=== PATIENT | male | born 1985 | race Caucasian/White ===

== ENCOUNTER → 2019-08-16 07:55 | Outpatient (CLI) | payer OTHER, SELFPAY ==
--- NOTE | ~2019-08-16 | US_ITS ---
US thyroid DATE: 08/16/2019 08:10 INDICATION: Thyroid nodule. Nontoxic goiter. TECHNIQUE: Real-time and color flow imaging of the thyroid gland COMPARISON: None FINDINGS: The right lobe of the thyroid gland measures 5.3 centimeters height x 1.4 centimeters AP x 1.6 centimeters transverse dimension. The left lobe measures 5.1 x 1.5 x 1.7 cm. The thyroid isthmus measures up to 5 mm anteroposterior dimension. No thyroid mass lesion is evident. Echotexture of the thyroid gland is relatively homogeneous and sym metric. IMPRESSION: No thyroid mass lesion detected Reviewed, dictated and finalized at [facility] Reviewed, dictated and finalized at [facility].
== END ==
PROVIDERS: PCP Family Medicine; Visit Provider Internal Medicine Endocrinology, Diabetes & Metabolism
DX: E04.9 Nontoxic goiter, unspecified (principal)
CPT/HCPCS: 76536

== ENCOUNTER 2019-11-07 08:40 | Emergency (ER) | payer OTHER, SELFPAY ==
--- NOTE | ~2019-11-07 | XR_ITS ---
EXAMINATION: XR shoulder RT min 2V DATE: 11/07/2019 09:48 INDICATION: Right shoulder pain. TECHNIQUE: 4 views of right shoulder were obtained. COMPARISON: None. FINDINGS: Bone alignment is normal. No fracture. Acromioclavicular joint is normal. There is mild gle nohumeral joint osteoarthritis. IMPRESSION: 1. Mild glenohumeral joint osteoarthritis. Reviewed, dictated and finalized at [facility].
[2019-11-07 08:53] VITALS: BP 162/105; PULSE 78; RESP 16; TEMP 36.3; O2SAT 98
[2019-11-07] MEDS: DIAZEPAM 5 MG TABLET PO (09:04)
--- NOTE | 2019-11-07 09:06 | ED.UPPEXIN ---
HPI - Extremity Injury (Upper) General Chief Complaint: Extremity Injury, Upper Stated Complaint: neck shoulder pain Time Seen by Provider: 11/07/19 08:43 History of Present Illness HPI narrative: Shoulder pain since yesterday morning. Located in the anterior shoulder with radiation into the trapezius and neck. Noticed first thing when he woke up. Mild improvement throughout the day, now more severe than before. Made worse by shoulder abduction and flexion. Mild improvement with folding hands behind the head. No trauam, fever, swelling, redness. Related Data Home Medications Medication Instructions Recorded Confirmed metoprolol succinate 25 mg 25 mg PO DAILY 08/25/19 tablet,extended release 24 hr metformin 500 mg PO BID 11/07/19 Allergies Allergy/AdvReac Type Severity Reaction Status Date / Time No Known Allergies Allergy Verified 11/07/19 08:57 Review of Systems Review of Systems: All systems reviewed & are unremarkable except as noted in HPI and below PMFSH Past Medical History Medical History Diabetes mellitus HTN (hypertension) Family History Family History Other Hypertension Social History Social History Smoking status: Never smoker Second hand tobacco smoke exposure: No Alcohol intake: current Gender identity (if verbalized by the patient): Male Exam Const: General: no acute distress and alert Nutritional Appearance: obese Orientation/consciousness: patient oriented x3 HENMT: Head: normal to inspection Resp: Effort & Inspection: normal respiratory effort Auscultation: clear to auscultation bilaterally Cardio: Rate: regular rate Rhythm: regular rhythm Skin: General skin exam: normal color Rashes: no rashes Wounds: no wounds Neuro: General: patient oriented x3, moves all extremities and CN's II-XI intact bilaterally Speech: normal speech Other: 5/5 strength. Pain limited ROM in right shoulder. Minimal pain with passive movement. Mild tenderness of biceps ligament. Extrem: General: normal to inspection Psych: Appearance: grossly normal and well kempt Mental Status: mental status grossly normal Affect: normal affect Attitude: cooperative Thought content: Yes Normal thought content present Course Vital Signs Vital signs: Vital Signs Temperature 36.3 C L 06/05/20 08:53 Pulse Rate 78 11/07/19 08:53 Respiratory Rate 16 11/07/19 08:53 Blood Pressure 162/105 H 11/07/19 08:53 Pulse Oximetry 98 11/07/19 08:53 Temperature 36.3 C L 11/07/19 08:53 Pulse Rate 72 11/07/19 10:25 Respiratory Rate 14 11/07/19 10:25 Blood Pressure 164/64 H 11/07/19 10:25 Pulse Oximetry 99 11/07/19 10:25 Discharge Plan Discharge Clinical Impression: Tendinopathy of right biceps tendon Patient Disposition: Home, Self-Care Condition: Stable Instructions: Tendinitis (ED) Prescriptions: New methylprednisolone [Medrol (Romeo)] 4 mg tablets,dose pack See Rx Instructions .ROUTE .COMPLEX Qty: 21 RF: 0 No Action metformin 500 mg tablet extended release 24 hr 500 mg PO BID RF: 0 metoprolol succinate 25 mg tablet extended release 24 hr 25 mg PO DAILY RF: 0 amlodipine 10 mg tablet 10 mg PO DAILY Qty: 90 RF: 3 Follow-up/Referrals: Katiana Stringer MD [Primary Care Provider] - Discharge Date/Time: 11/07/19 10:29
[2019-11-07 10:25] VITALS: BP 164/64; PULSE 72; RESP 14; O2SAT 99
== END 2019-11-07 10:29 | disposition home or self-care (01) ==
PROVIDERS: Emergency Provider Emergency Medicine; PCP Family Medicine
DX: M75.81 Other shoulder lesions, right shoulder (principal); E11.9 Type 2 diabetes mellitus without complications; I10 Essential (primary) hypertension; M19.011 Primary osteoarthritis, right shoulder; Z79.84 Long term (current) use of oral hypoglycemic drugs
CPT/HCPCS: 73030; 96372; 99283; A9270; J1100

== ENCOUNTER 2020-04-03 08:36 | Emergency (ER) | payer OTHER, SELFPAY ==
[2020-04-03 08:42] VITALS: BP 150/88; PULSE 92; RESP 18; TEMP 36.1; O2SAT 98
--- NOTE | 2020-04-03 09:07 | ED.GENADULT ---
HPI - General Adult General Chief complaint: Allergic Reaction Stated complaint: allergic reaction to paint Time Seen by Provider: 04/03/20 08:48 Source: patient History of Present Illness HPI narrative: Patient is a 35 y/o male complaining of erythematous rash on his upper face, forehead and ears since 3 days ago. He has no pain or itch. He took Benadryl, which did not help. He has no fever, chills, chest pain or SOB. 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 He states that he had full body suit and respirator covering his mouth and nose. However, the rest of his head was exposed. He is concerned that rash maybe due to allergic reaction to paint. Related Data Home Medications Medication Instructions Recorded Confirmed metformin 500 mg PO BID 11/07/19 Allergies Allergy/AdvReac Type Severity Reaction Status Date / Time No Known Allergies Allergy Verified 04/03/20 08:54 Review of Systems Constitutional: Constitutional: Denies chills, Denies fever(s), Denies headache(s) and Denies weakness Eyes: Eyes: Denies blurry vision ENT: Denies headache(s) and Denies neck pain Cardiovascular: Cardiovascular: Denies chest pain and Denies dyspnea Respiratory: Respiratory: Denies cough and Denies dyspnea Gastrointestinal: Gastrointestinal: Denies abdominal pain, Denies diarrhea, Denies nausea and Denies vomiting Genitourinary: Genitourinary: Denies hematuria and Denies dysuria Musculoskeletal: Musculoskeletal: Denies back pain and Denies neck pain Integumentary/Breasts: Skin/Breast: Reports as per HPI and Reports rash Neurologic: Denies headache(s) and Denies weakness [facility] Past Medical History Medical History (Updated 04/03/20 @ 11:22 by Carol Ann Ott MD) Diabetes mellitus HTN (hypertension) Family History Family History Other Hypertension Social History Social History Smoking status: Never smoker Second hand tobacco smoke exposure: No Alcohol intake: current Gender identity (if verbalized by the patient): Male Exam Const: General: no acute distress and well developed Orientation/consciousness: oriented to person, oriented to place, oriented to time and patient oriented x3 HENMT: Head: normocephalic Ears: external ears normal General nose exam: Normal external nose present Eyes: General: appearance normal, both eyes and all related structures Conjunctivae: conjunctivae normal Neck: Neck: normal visual inspection and full ROM Chest: Chest palpation & inspection: normal inspection of the chest and no tenderness Resp: Effort & Inspection: normal respiratory effort Auscultation: clear to auscultation bilaterally Cardio: Rate: regular rate Rhythm: regular rhythm GI: GI Palp: No abdominal tenderness and Yes Soft to palpation Skin: General skin exam: normal color and turgor normal Rashes: rashes noted (erythematous rash on upper face) Neuro: General: oriented to person, oriented to place, oriented to time and patient oriented x3 Cognition (Neuro): normal cognition Extrem: General: normal to inspection, full ROM and no pedal edema Psych: Appearance: grossly normal Mental Status: mental status grossly normal Affect: normal affect Course Vital Signs Vital signs: Vital Signs Temperature 36.1 C L 04/03/20 08:42 Pulse Rate 92 04/03/20 08:42 Respiratory Rate 18 04/03/20 08:42 Blood Pressure 150/88 H 04/03/20 08:42 Pulse Oximetry 98 04/03/20 08:42 Temperature 36.1 C L 04/03/20 08:42 Pulse Rate 84 04/03/20 11:28 Respiratory Rate 18 04/03/20 11:28 Blood Pressure 145/83 H 04/03/20 11:28 Pulse Oximetry 97 04/03/20 11:28 Medical Decision Making Vital Signs Vital Signs: Vital Signs Temperature 36.1 C L 04/03/20 08:42 Pulse Rate 92 04/03/20 08:42 Respiratory Rate 18 04/03/20 08:42 Blood Pressure 150/88 H 04/03/20
[2020-04-03] MEDS: predniSONE 20 MG TABLET 40 MG PO (09:11)
[2020-04-03 09:13] LABS: Basophils Absolute Auto 0.1 K/mm3 (0.0-0.1); Basophils Percent Auto 1.1 % (0.2-1.2); Eosinophils Absolute Auto 0.6 K/mm3 (0-0.3); Eosinophils Percent Auto 7.8 % (0-4.4); Hematocrit 47.5 % (42.0-52.0); Hemoglobin 16.4 g/dL (14.0-18.0); Immature Granulocyte Absolute 0.03 K/mm3 (0.00-0.031); Immature Granulocyte Percent A 0.4 % (0-0.5); Lymphocytes Absolute Auto 1.32 K/mm3 (0.9-3.2); Lymphocytes Percent Auto 18.4 % (18.3-44.2); Mean Corpuscular HGB Conc 34.5 g/dl (32-36); Mean Corpuscular Hemoglobin 29.5 pg (26-34); Mean Corpuscular Volume 85.6 fl (80-100); Mean Platelet Volume 9.4 fl (7.4-10.4); Monocytes Absolute Auto 0.5 K/mm3 (0.1-0.6); Monocytes Percent Auto 6.3 % (2.6-8.5); Neutrophils Absolute Auto 4.7 K/mm3 (1.3-6.7); Platelet Count Result 221 k/mm3 (150-375); Red Blood Count 5.55 M/mm3 (4.6-6.20); Red Cell Distribution Width 12.6 % (11.5-14.5); White Blood Count 7.2 K/mm3 (4.5-10.0)
[2020-04-03 09:21] VITALS: BP 161/93; PULSE 79; RESP 18; O2SAT 97
[2020-04-03 09:27] LABS: Anion Gap 9 mmol/L (8-16); Blood Urea Nitrogen 16 mg/dL (9-20); CRP 0.7 mg/dL (<1.0); Calcium 9.3 mg/dL (8.4-10.2); Carbon Dioxide 25 mmol/L (22-30); Chloride 106 mmol/L (98-107); Estimated CRCL calculation 147 ml/min; Estimated Glomerular Filt Rate > 60; Glucose 118 mg/dL (75-110); Potassium 3.5 mmol/L (3.4-5.0); Sodium 140 mmol/L (137-145)
[2020-04-03 09:54] LABS: Erythrocyte Sedimentation Rate 8 mm/hr (0-20)
[2020-04-03 10:45] VITALS: BP 161/88; PULSE 83; RESP 18; O2SAT 97
[2020-04-03 11:28] VITALS: BP 145/83; PULSE 84; RESP 18; O2SAT 97
== END 2020-04-03 11:29 | disposition home or self-care (01) ==
PROVIDERS: Emergency Provider Emergency Medicine; PCP Family Medicine
DX: L25.3 Unspecified contact dermatitis due to other chemical products (principal); E11.9 Type 2 diabetes mellitus without complications; I10 Essential (primary) hypertension; Z79.84 Long term (current) use of oral hypoglycemic drugs
CPT/HCPCS: 36415; 80048; 85025; 85652; 86038; 86140; 99283; J7512